=== PATIENT | female | born 1950 | race Caucasian/White ===

== ENCOUNTER → 2016-07-02 | Outpatient (CLI) | payer BC ==
[~2016-07-02] MED LIST: LEVO100T48 PO; NXM/40 PO
== END | disposition home or self-care (01) ==
LOC: C.LAB1850 09:48
PROVIDERS: ATTEND Internal Medicine
DX: E03.9 Hypothyroidism, unspecified (principal)

== ENCOUNTER → 2017-06-29 | Outpatient (CLI) | payer OTHER ==
[2017-06-29 14:33] LABS: BASO % 0.6 %; BASO ABS # 0.04 K/uL (0-0.2); EOS % 6.8 %; EOS ABS # 0.46 K/uL (0-0.5); HEMATOCRIT 38.6 % (37-47); HEMOGLOBIN 12.9 g/dL (12.0-16.0); IG# 0.01 K/uL (0.00-0.02); LYMPH % 26.2 %; LYMPH ABS # 1.77 K/uL (1.2-3.4); MEAN CELL VOLUME 87.3 fL (80-100); MEAN CORPUSCULAR HEMOGLOBIN 29.2 pg (25-34); MEAN CORPUSCULAR HGB CONC 33.4 g/dl (32-36); MEAN PLATELET VOLUME 10.1 fL (7.4-10.4); MONO % 10.2 %; MONO ABS # 0.69 K/uL (0.11-0.59); NEUT % 56.1 %; NEUT ABS # 3.78 K/uL (1.4-6.5); PLATELET COUNT 234 K/uL (130-400); RED CELL DISTRIBUTION WIDTH CV 13.3 % (11.5-14.5); RED CELL DISTRIBUTION WIDTH SD 42.7 fL (36.4-46.3); WHITE BLOOD COUNT 6.75 K/uL (4.8-10.8)
[2017-06-29 15:07] LABS: ALBUMIN 3.7 gm/dl (3.4-5.0); ALT/SGPT 21 U/L (12-78); BLOOD UREA NITROGEN 16 mg/dl (7-18); CALCIUM 8.9 mg/dl (8.5-10.1); CARBON DIOXIDE 26 mmol/L (21-32); CREATININE 1.03 mg/dl (0.60-1.20); GLUCOSE 75 mg/dl (70-99); POTASSIUM 3.7 mmol/L (3.5-5.1); SODIUM 139 mmol/L (136-145)
[2017-06-29 15:17] LABS: ALKALINE PHOSPHATASE 104 U/L (45-117); AST/SGOT 17 U/L (15-37); TOTAL PROTEIN 7.3 gm/dl (6.4-8.2)
== END | disposition home or self-care (01) ==
LOC: C.LAB1850 12:34
PROVIDERS: ATTEND Physician Assistant
DX: E03.9 Hypothyroidism, unspecified (principal)

== ENCOUNTER → 2017-07-20 | Outpatient (CLI) | payer OTHER | END | disposition home or self-care (01) | LOC: C.LABSPEC 13:42 | PROVIDERS: ATTEND Obstetrics & Gynecology | DX: R82.90 Unspecified abnormal findings in urine (principal) ==

== ENCOUNTER → 2017-09-01 | Day surgery (SDC) | payer OTHER ==
[2017-08-26 08:50] VITALS: BMI 34.0
[~2017-09-01] VITALS: Ht 157.5 cm; Wt 84.1 kg
[~2017-09-01] MED LIST changes: +CALC500C70 PO; +CYAN10005 PO; +FLUT50SP45 NAE; -LEVO100T48 PO; +LEVO100T7 PO; +LIDOCAINE HCL 2% 2 ML VIAL (20MG/ML) ONE; +ONDANSETRON INJ 2 MG/ML 2 ML VIAL ONE; +PHENYLEPHRINE 100MCG/ML 5ML SYR ONE; +PROPOFOL IV EMULSION 10 MG/ML 20 ML VIAL ONE; +[UNRECOGNIZED DRUG - CODE] PO
[2017-09-01 11:14] VITALS: Ht 157.5 cm; Wt 84.1 kg
--- NOTE | 2017-09-01 11:38 | Endo History and Physical ---
History & Physical Date of Service: September 01, 2017. Chief Complaint: FAMILY HX COLON CA BARRETTS Referring Physician: DR. SANCHEZ History of Present Illness 67 yo CF who presents for EGD secondary to Paredes's Esophagus and colonoscopy secondary to family history of colon cancer. Past Medical History Other Psy. Disorders, Thyroid Disease, Other Past Surgical History Hx Cardiac Surgery: No Hx Internal Defibrillator: No Hx Pacemaker: No Hx Abdominal Surgery: No Hx of Implantable Prosthesis: No Hx Post-Op Nausea and Vomiting: No Hx Cancer Surgery: No Hx Thoracic Surgery: No Hx Orthopedic: No Hx Urinary Tract Surgery: No Family History Colon CA Social History Smoking Status: Never Smoker Hx Substance Use: No Hx Alcohol Use: No Allergies Coded Allergies: Codeine (Verified Allergy, Mild, DELIRIUM, 09/01/17) Current Medications Reported Home Medications Medications Dose Route/Sig Max Daily Dose Days Date Category [place] 500 Plus D (Calcium/Vitamin D) Tab 1 Tab PO DAILY PRN 09/01/17 Reported Vitachew Vitamin C [place] (Ascorbic Acid) 125 Mg Chw PO PRN 09/01/17 Reported Vitamin B-12 (Cyanocobalamin) 1,000 Mcg Tab 1,000 Mcg PO DAILY PRN 09/01/17 Reported Levothyroxine Sodium 100 Mcg Tab 1 Tab PO DAILY 30 08/26/17 Reported Allergy Nasal [place] 24 Ho (Fluticasone Propionate (Nasal)) 50 Mcg/Act Spr 2 Sprays ILYA DAILY PRN 08/26/17 Reported Nexium (Esomeprazole Magnesium) 40 Mg Cap 40 Mg PO DAILY 08/21/14 Reported Vital Signs Weight (Kilograms): 84.09 Height (Feet): 5 Height (Inches): 2 Date Time Temp Pulse Resp B/P (MAP) Pulse Ox O2 Delivery O2 Flow Rate FiO2 09/01/17 11:32 36.8 73 20 158/88 (111) 99 Room Air Physical Exam General Appearance: WD/WN, no apparent distress Respiratory/Chest: Auscultation: breath sounds normal Cardiovascular: Heart Auscultation: RRR Abdomen: Bowel Sounds: normal Inspection & Palpation: soft, non-distended, no tenderness, guarding & rebound Assessment and Plan Assessment: 67 yo CF who presents for EGD secondary to Paredes's Esophagus and colonoscopy secondary to family history of colon cancer. Plan: Proceed with EGD and colonoscopy.
--- NOTE | 2017-09-01 12:20 | GI REPORT ---
Patient Name: Melina Brower Procedure Date: 09/01/2017 11:23 AM Date of : 1950 Admit Type: Outpatient Age: 67 Gender: Female Attending MD: Pipe Rain DO Procedure: Colonoscopy Providers: Pipe Rain DO Referring MD: Danielle Marques Indications: Family history of colon cancer in a first-degree relative Medicines: Monitored Anesthesia Care Complications: No immediate complications. Estimated Blood Loss: Estimated blood loss: none. Procedure: Pre-Anesthesia Assessment: - Prior to the procedure, a History and Physical was performed, and patient medications and allergies were reviewed. The patient's tolerance of previous anesthesia was also reviewed. The risks and benefits of the procedure and the sedation options and risks were discussed with the patient. All questions were answered, and informed consent was obtained. Prior Anticoagulants: The patient has taken no previous anticoagulant or antiplatelet agents. ASA Grade Assessment: II - A patient with mild systemic disease. After reviewing the risks and benefits, the patient was deemed in satisfactory condition to undergo the procedure. After I obtained informed consent, the scope was passed under direct vision. Throughout the procedure, the patient's blood pressure, pulse, and oxygen saturations were monitored continuously. The Scope was introduced through the anus and advanced to the terminal ileum. The colonoscopy was performed without difficulty. The patient tolerated the procedure well. The quality of the bowel preparation was good. The terminal ileum, ileocecal valve, appendiceal orifice, and rectum were photographed. Findings: The perianal and digital rectal examinations were normal. A 4 mm polyp was found in the cecum. The polyp was sessile. The polyp was removed with a cold snare. Resection and retrieval were complete. The exam was otherwise without abnormality. Impression: - One 4 mm polyp in the cecum, removed with a cold snare. Resected and retrieved. - The examination was otherwise normal. Recommendation: - Resume previous diet. - Continue present medications. - Repeat colonoscopy for surveillance based on pathology results. - Return to primary care physician as previously scheduled. Pipe Rain DO 09/01/2017 12:20:34 PM This report has been signed electronically. Note Initiated On: 09/01/2017 11:23 AM Number of Addenda: 0 I attest to the content of the Intraoperative Record and orders documented therein, exceptions below {[id number]}
--- NOTE | 2017-09-01 12:24 | GI REPORT ---
Patient Name: Melina Brower Procedure Date: 09/01/2017 11:23 AM Date of : 1950 Admit Type: Outpatient Age: 67 Gender: Female Attending MD: Pipe Rain DO Procedure: Upper GI endoscopy Providers: Pipe Rain DO Referring MD: Danielle Marques Indications: Paredes's esophagus Medicines: Monitored Anesthesia Care Complications: No immediate complications. Estimated Blood Loss: Estimated blood loss: none. Procedure: Pre-Anesthesia Assessment: - Prior to the procedure, a History and Physical was performed, and patient medications and allergies were reviewed. The patient's tolerance of previous anesthesia was also reviewed. The risks and benefits of the procedure and the sedation options and risks were discussed with the patient. All questions were answered, and informed consent was obtained. Prior Anticoagulants: The patient has taken no previous anticoagulant or antiplatelet agents. ASA Grade Assessment: II - A patient with mild systemic disease. After reviewing the risks and benefits, the patient was deemed in satisfactory condition to undergo the procedure. After obtaining informed consent, the endoscope was passed under direct vision. Throughout the procedure, the patient's blood pressure, pulse, and oxygen saturations were monitored continuously. The Scope was introduced through the mouth, and advanced to the second part of duodenum. The upper GI endoscopy was accomplished without difficulty. The patient tolerated the procedure well. Findings: There were esophageal mucosal changes consistent with short-segment Paredes's esophagus present at the gastroesophageal junction. The maximum longitudinal extent of these mucosal changes was 3 cm in length. Mucosa was biopsied with a cold forceps for histology. One specimen bottle was sent to pathology. A medium-sized hiatal hernia was present. The examined duodenum was normal. Impression: - Esophageal mucosal changes consistent with short-segment Paredes's esophagus. Biopsied. - Medium-sized hiatal hernia. - Normal examined duodenum. Recommendation: - Resume previous diet. - Continue present medications. - Await pathology results. - Return to primary care physician as previously scheduled. Pipe Rain DO 09/01/2017 12:24:00 PM This report has been signed electronically. Note Initiated On: 09/01/2017 11:23 AM Number of Addenda: 0 I attest to the content of the Intraoperative Record and orders documented therein, exceptions below {[id number]}
--- NOTE | 2017-09-01 12:25 | Discharge Instructions ---
Endoscopy Patient Instructions Date / Procedure(s) Performed September 01, 2017. Colonoscopy, EGD Allergy Information Coded Allergies: Codeine (Verified Allergy, Mild, DELIRIUM, 09/01/17) Discharge Date / Findings September 01, 2017. EGD: Paredes's esophagus s/p biopsies, Hiatal hernia Colonoscopy: Colon polyp Medication Instructions OK to resume all medications today as prescribed Reported Home Medications Medications Dose Route/Sig Max Daily Dose Days Date Category Os-[place] 500 Plus D (Calcium/Vitamin D) Tab 1 Tab PO DAILY PRN 09/01/17 Reported Vitachew Vitamin C [place] (Ascorbic Acid) 125 Mg Chw PO PRN 09/01/17 Reported Vitamin B-12 (Cyanocobalamin) 1,000 Mcg Tab 1,000 Mcg PO DAILY PRN 09/01/17 Reported Levothyroxine Sodium 100 Mcg Tab 1 Tab PO DAILY 30 08/26/17 Reported Allergy Nasal [place] 24 Ho (Fluticasone Propionate (Nasal)) 50 Mcg/Act Spr 2 Sprays ILYA DAILY PRN 08/26/17 Reported Nexium (Esomeprazole Magnesium) 40 Mg Cap 40 Mg PO DAILY 08/21/14 Reported Provider Instructions Activity Restrictions - No exercising or heavy lifting for 24 hours. - Do not drink alcohol the day of the procedure. - Do not drive a car or operate machinery until the day after the procedure. - Do not make any important decisions or sign important papers in 24 hours after the procedure. Following Day: - Return to full activity which may include returning to work/school. Diet Start your diet with liquids and light foods (jello, soup, juice, toast). Then eat your usual diet if not nauseated. Treatment For Common After Affects For mild abdominal pain, bloating, or excessive gas: - Rest - Eat lightly - Lie on right side Follow-Up Information Follow-up with DR. SANCHEZ as scheduled Anesthesia Information What You Should Know You have had a procedure that required some medicine to reduce anxiety and discomfort. This treatment is called moderate sedation. After receiving the treatment, you may be sleepy, but you will be able to breathe on your own. The effects of the treatment may last for several hours. Follow these instructions along with Activity/Diet recommendations noted above: * Do NOT do anything where dizziness or clumsiness would be dangerous. * Rest quietly at home today, then you can be up and about tomorrow. * Have a responsible person stay with you the rest of today. * You may have had an I.V. today. If so, you may take the dressing off later today. Recommendations Call your doctor if: * Trouble breathing * Continuous vomiting for more than 24 hours * Temperature above 101 degrees * Severe abdominal pain or bloating * Pain not relieved by pain medicine ordered * There is increased drainage or redness from any incision * A large amount of rectal bleeding greater than 2-3 tablespoons. (If you had a polyp/s removed or have hemorrhoids, a small amount of blood - from the rectum is to be expected.) * You have any unanswered questions or concerns. IN THE EVENT OF A SERIOUS EMERGENCY, GO TO THE NEAREST EMERGENCY ROOM Your discharge instructions were prepared by provider Pipe Rain. Patient Instructions Signature Page Melina Brower Patient (or Guardian) Signature/Date: I have read and understand the instructions given to me by my caregivers. Caregiver/RN/Doctor Signature/Date: The above-named patient and/or guardian has received patient instructions on this date. + Original Patient Signature Page (only) stays with chart. Please make copy for patient.
[2017-09-01 12:56] VITALS: BP 125/77; PULSE 56; O2SAT 99
--- NOTE | 2017-09-01 13:29 | Anesthesiology Progress Note ---
Anesthesia Post Op Note Date & Time September 01, 2017 at 13:24 Vital Signs Pain Intensity: 0 Vital Signs Past 12 Hours Date Time Temp Pulse Resp B/P (MAP) Pulse Ox O2 Delivery O2 Flow Rate FiO2 09/01/17 12:56 56 18 125/77 (93) 99 Room Air 09/01/17 12:41 86 18 121/66 (84) 98 Room Air 09/01/17 12:26 70 16 127/58 (81) 98 Room Air 09/01/17 11:32 36.8 73 20 158/88 (111) 99 Room Air Notes Mental Status: alert / awake / arousable, participated in evaluation Pt Amnestic to Procedure: Yes Nausea / Vomiting: adequately controlled Pain: adequately controlled Airway Patency, RR, SpO2: stable & adequate BP & HR: stable & adequate, see Notes Hydration State: stable & adequate Anesthetic Complications: no major complications apparent The patient was noted to have PACs in the procedure room. A 12 lead EKG was obtained in recovery that showed PACs with a pattern of bigeminy. The patient' s vital signs were all stable. She was awake and comfortable with no palpitations, chest pain, SOB, or dizziness. I spoke to a nurse at Dr. Maher's office and he will follow up with the patient. The patient feels fine to go home. She and her were counseled to go to the ER if she experiences any concerning symptoms.
== END | disposition home or self-care (01) ==
LOC: C.GI 10:22
PROVIDERS: ATTEND Internal Medicine
DX: Z12.11 Encounter for screening for malignant neoplasm of colon (principal); D12.0 Benign neoplasm of cecum; Z80.0 Family history of malignant neoplasm of digestive organs; K22.70 Barrett's esophagus without dysplasia; K44.9 Diaphragmatic hernia without obstruction or gangrene; Z88.5 Allergy status to narcotic agent; M19.90 Unspecified osteoarthritis, unspecified site

== ENCOUNTER → 2017-11-11 | Outpatient (CLI) | payer OTHER ==
[~2017-11-11] MED LIST changes: -LIDOCAINE HCL 2% 2 ML VIAL (20MG/ML) ONE; -ONDANSETRON INJ 2 MG/ML 2 ML VIAL ONE; -PHENYLEPHRINE 100MCG/ML 5ML SYR ONE; -PROPOFOL IV EMULSION 10 MG/ML 20 ML VIAL ONE
== END | disposition home or self-care (01) ==
LOC: C.MAMM 08:22
PROVIDERS: ATTEND Internal Medicine
DX: M85.852 Other specified disorders of bone density and structure, left thigh (principal)